=== PATIENT | female | born 1960 | race Caucasian/White ===

== ENCOUNTER 2019-07-27 07:17 | Outpatient (CLI) | payer OTHER, SELFPAY ==
[2019-07-27 07:46] LABS: Basophils Percent Auto 0.7 % (0.2-1.2); Eosinophils Absolute Auto 0.2 K/mm3 (0-0.3); Eosinophils Percent Auto 2.8 % (0-4.4); Hematocrit 36.6 % (37.0-47.0); Hemoglobin 12.1 g/dL (12.0-15.0); Immature Granulocyte Absolute 0.02 K/mm3 (0.00-0.031); Immature Granulocyte Percent A 0.4 % (0-0.5); Lymphocytes Absolute Auto 1.94 K/mm3 (0.9-3.2); Lymphocytes Percent Auto 35.8 % (18.3-44.2); Mean Corpuscular HGB Conc 33.1 g/dl (32-36); Mean Corpuscular Hemoglobin 31.1 pg (26-34); Mean Corpuscular Volume 94.1 fl (80-100); Monocytes Absolute Auto 0.8 K/mm3 (0.1-0.6); Monocytes Percent Auto 14.2 % (2.6-8.5); Neutrophils Absolute Auto 2.5 K/mm3 (1.3-6.7); Neutrophils Percent Auto 46.1 % (45.5-73.1); Platelet Count Result 350 k/mm3 (150-375); Red Blood Count 3.89 M/mm3 (4.2-5.4); Red Cell Distribution Width 13.7 % (11.5-14.5); White Blood Count 5.4 K/mm3 (4.5-10.0)
[2019-07-27 07:56] LABS: Alanine Aminotransferase 13 U/L (4-35); Albumin Level 4.4 g/dL (3.5-5.1); Alkaline Phosphatase 63 U/L (38-126); Aspartate Amino Transferase 21 U/L (14-36); Bilirubin,Total 0.4 mg/dL (0.2-1.3); Blood Urea Nitrogen 16 mg/dL (7-17); Calcium 9.6 mg/dL (8.4-10.2); Carbon Dioxide 29 mmol/L (22-30); Chloride 101 mmol/L (98-107); Cholesterol 240 mg/dL (0-200); Estimated Glomerular Filt Rate > 60; Glucose 108 mg/dL (65-105); HDL Direct 59 mg/dL; Potassium 4.5 mmol/L (3.4-5.0); Sodium 136 mmol/L (137-145); Triglycerides 90 mg/dL (<150)
[2019-07-27 08:07] LABS: LDL Cholesterol Direct 129 mg/dL
[2019-07-27 08:25] LABS: Free T4 Free Thyroxine 1.14 ng/mL (0.78-2.19)
== END 2019-07-27 07:18 | disposition home or self-care (01) ==
PROVIDERS: PCP Family Medicine; Visit Provider Family Medicine
DX: Z00.00 Encounter for general adult medical examination without abnormal findings (principal); E03.9 Hypothyroidism, unspecified; I10 Essential (primary) hypertension
CPT/HCPCS: 36415; 80053; 80061; 84439; 84443; 85025

== ENCOUNTER 2019-09-12 00:45 | Outpatient (CLI) | payer OTHER, SELFPAY ==
[2019-09-12 17:34] LABS: SARS-CoV-2 RNA PCR Negative
== END 2019-09-12 00:46 | disposition home or self-care (01) ==
LOC: ANHCOVIDDT 00:45
PROVIDERS: PCP Family Medicine; Visit Provider Internal Medicine Gastroenterology
DX: Z01.812 Encounter for preprocedural laboratory examination (principal); Z11.59 Encounter for screening for other viral diseases
CPT/HCPCS: 87635; C9803; U0003

== ENCOUNTER 2019-09-14 01:11 | Day surgery (SDC) | payer OTHER, SELFPAY ==
[2019-09-06 14:19] VITALS: BMI 28.5
[2019-09-14 08:55] VITALS: BP 114/70; PULSE 78; RESP 16; TEMP 36.9; O2SAT 100; BMI 29.0
--- NOTE | 2019-09-14 09:02 | P.HP_ITS ---
History of Present Illness History of Present Illness Consent: Risks, benefits, and alternatives have been discussed and questions answered. Patient agrees to proceed with procedure. Chief complaint: Neoplasm Screening Narrative: Nava Wheeler is a 58 year old W female referred for screening colonoscopy secondary history of colonic polyps. Patient had a colonoscopy 6 years ago which time a 1 cm adenomatous polyp was removed. She received a letter 5 years ago but did not return at that time. Patient is asymptomatic. No family history of colon cancer. [facility] Past Medical History Medical History (Updated 09/13/19 @ 10:28 by Santy Callahan DO) Hypertension Hypothyroidism (acquired) Leg benign neoplasm Surgical History Surgical History (Updated 07/18/19 @ 15:13 by Hali Mcallister MA) H/O adenoidectomy History of cholecystectomy Hx of tonsillectomy Social History Social History Smoking status: Never smoker Alcohol intake: current Gender identity (if verbalized by the patient): Female Meds Home Medications and Allergies Home Medications Medication Instructions Recorded Confirmed Type levothyroxine 75 mcg tablet 75 mcg PO DAILY #90 tablet 03/12/19 09/06/19 Rx telmisartan 40 1 tablet PO DAILY #90 tablet 03/12/19 09/14/19 Rx mg-hydrochlorothiazide 12.5 mg tablet omeprazole 20 mg PO DAILY 09/06/19 09/06/19 History Allergies Allergy/AdvReac Type Severity Reaction Status Date / Time codeine Allergy Unknown Nausea Verified 09/14/19 08:53 erythromycin base Allergy Unknown intolerance Verified 09/14/19 08:53 hydrocodone Allergy Unknown unknown Verified 09/14/19 08:53 morphine Allergy Unknown Nausea Verified 09/14/19 08:53 NONE VICODIN AND MSO4 MAKE Allergy Unknown unknown Uncoded 09/14/19 08:53 NAUSEATED Vital Signs Vital Signs - 24 hr 09/14/19 08:55 Temperature 36.9 C Pulse Rate 78 Respiratory Rate 16 Blood Pressure 114/70 Pulse Oximetry 100 Exam Const: Orientation/consciousness: patient oriented x3 Resp: Auscultation: clear to auscultation bilaterally Cardio: Rate: regular rate Rhythm: regular rhythm Heart sounds: no murmurs GI: GI Palp: Yes Soft to palpation, No Tenderness to palpation present (GI), Yes No hepatosplenomegaly present and No Palpable mass present Auscultation: normal bowel sounds Neuro: General: patient oriented x3 and no focal motor deficits Extrem: General: no pedal edema Assessment and Plan Additional Plan Screening colonoscopy secondary history of colonic polyps
[2019-09-14] MEDS: LACTATED RINGERS 1,000 ML 150 ML IV CONT (09:13)
--- NOTE | 2019-09-14 09:13 | WPDANESEPPF ---
Anes - Initial Pre Proc Eval Procedure: Operation Date: 09/14/19 10:00 Proposed Procedures p Screening Colonoscopy - Yony Palomo MD Date/Time: 09/14/19 09:13 Surgeon: Yony Palomo MD Pre Op Diagnosis: Neoplasm Screening Patient Data Age: 58 Gender: F Height: 1.6 m Weight: 74.4 kg Last Vital Signs Temp 36.9 C 09/14/19 08:55 Pulse 78 09/14/19 08:55 Resp 16 09/14/19 08:55 BP 114/70 09/14/19 08:55 Pulse Ox 100 09/14/19 08:55 Allergies Allergy/AdvReac Type Severity Reaction Status Date / Time codeine Allergy Unknown Nausea Verified 09/14/19 08:53 erythromycin base Allergy Unknown intolerance Verified 09/14/19 08:53 hydrocodone Allergy Unknown unknown Verified 09/14/19 08:53 morphine Allergy Unknown Nausea Verified 09/14/19 08:53 NONE VICODIN AND MSO4 MAKE Allergy Unknown unknown Uncoded 09/14/19 08:53 NAUSEATED Home Medications Medication Instructions Recorded Confirmed Type levothyroxine 75 mcg tablet 75 mcg PO DAILY #90 tablet 03/12/19 09/06/19 Rx telmisartan 40 1 tablet PO DAILY #90 tablet 03/12/19 09/14/19 Rx mg-hydrochlorothiazide 12.5 mg tablet omeprazole 20 mg PO DAILY 09/06/19 09/06/19 History Patient hx anesthesia problems: none Family hx anesthesia problems: none PMFSH Past Medical History Medical History (Updated 09/13/19 @ 10:28 by Santy Callahan DO) Hypertension Hypothyroidism (acquired) Leg benign neoplasm Surgical History Surgical History (Updated 07/18/19 @ 15:13 by Hali Mcallister MA) H/O adenoidectomy History of cholecystectomy Hx of tonsillectomy Social History Social History Smoking status: Never smoker Alcohol intake: current Gender identity (if verbalized by the patient): Female Anes - Eval Final PreProcedure Day of Procedure 09/14/19 09:13 Patient weight: overweight Heart: regular rate and rhythm Lungs: clear to auscultation and normal air movement Airway: Mallampati scale class II Neurological: alert and oriented Last oral intake: >/= 8 hours ASA classification: II Emergent: no Anesthetic plan: proceed Anesthesia type and monitoring: general GIVS and standard monitoring Informed Consent: The patient's anesthetic plan and its attendant risks and benefits were discussed with the patient/family/POA. Questions were solicited and answers provided to the satisfaction of the patient/family/POA.
[2019-09-14 10:39] VITALS: BP 114/73; PULSE 76; RESP 21; O2SAT 96
[2019-09-14 10:49] VITALS: BP 125/73; PULSE 70; RESP 13; O2SAT 100
[2019-09-14 10:51] VITALS: BP 128/80; PULSE 67; RESP 17; O2SAT 100
== END 2019-09-14 11:05 | disposition home or self-care (01) ==
PROVIDERS: PCP Family Medicine; Visit Provider Internal Medicine Gastroenterology
PROC: 0DJD8ZZ Inspection of Lower Intestinal Tract, Via Natural or Artificial Opening Endoscopic (ICD-10-PCS; CPT 45378; principal; 2019-09-14 10:00)
DX: Z12.11 Encounter for screening for malignant neoplasm of colon (principal); D12.5 Benign neoplasm of sigmoid colon; D12.8 Benign neoplasm of rectum; I10 Essential (primary) hypertension; E03.9 Hypothyroidism, unspecified
CPT/HCPCS: 45385; 88305; J2704; J7120

== ENCOUNTER 2019-09-17 14:53 | Outpatient (CLI) | payer OTHER, SELFPAY ==
--- NOTE | ~2019-09-17 | MM_ITS ---
EXAMINATION: MM screening lopez BI w roverto HISTORY: Screening mammogram TECHNIQUE: Craniocaudal and mediolateral oblique 3-D tomosynthesis images were obtained and synthetic 2-D images were generated. CAD analysis was submitted and interpreted. COMPARISON: Comparison to multiple prior studies sequentially, with oldest reviewed study dated 02/19. BREAST PARENCHYMAL COMPOSITION: The breasts are heterogenously dense, which may obscure small masses. FINDINGS: There is no evidence of suspicious mass, calcification, or architectural distortion to sugg est malignancy in either breast. There has been no suspicious interval change. IMPRESSION: 1. No mammographic evidence of malignancy. 2. Recommend routine screening mammography in one year. BI-RADS Category 1: Negative Reviewed, dictated and finalized at location A.
--- NOTE | ~2019-09-17 | DEXA_ITS ---
Bone Density Report Name: Nava Wheeler Age: 58 Sex: Female Ethnicity: White Date of : 1960 Indication: postmenopausal; Referring Provider: Josesito LAL Study: Bone densitometry was performed. Exam Date: September 17, 2019 Accession number: [id number] Bone Density: Region BMD T-score Z-score Classification AP Spine (L1-L4) 1.103 0.5 2.0 Normal Femoral Neck (Left) 0.907 0.5 1.8 Normal Total Hip (Left) 1.030 0.7 1.7 Normal Total Hip Bilateral Avg 1.020 0.6 1.6 Normal Femoral Neck (Right) 0.839 -0.1 1.2 Normal Total Hip (Right) 1.008 0.5 1.5 Normal World Health Organization criteria for BMD impression classify patients as: Normal (T-score at or above -1.0), Osteopenia (T-score between -1.0 and -2.5), or Osteoporosis (T-score at or below -2.5). 10-year Fracture Risk: FRAX not reported because: All T-scores for Spine Total, Hip Total, Femoral Neck at or above -1.0 Previous Exams: Region Exam Age BMD T-score BMD Change BMD Change Date g/cm2 vs Baseline vs Previous AP Spine(L1-L4) 09/17/2019 58 1.103 0.5 -0.274(-19.9%) -0.274(-19.9%) 11/05/2002 41 1.377 3.0 Total Hip(Left) 09/17/2019 58 1.030 0.7 -0.142(-12.1%) -0.142(-12.1%) 11/05/2002 41 1.172 1.9 Total Hip(Right) 09/17/2019 58 1.008 0.5 -0.158(-13.5%) -0.158(-13.5%) 11/05/2002 41 1.166 1.8 *Denotes significance at 95% confidence level, LSC for AP Spine = 0.022 g/cm2, LSC for Total Hip = 0.027 g/cm2 Clinical Information Provided by Patient: Has used the following medications: Calcium Patient maximum height was 64 Menopause Age: 48 Does not regularly consume dairy products Drinks caffeinated beverages Onset of menses at age 11 Number of children 2 Impression: The patient has normal bone mass. No significant bone loss was observed. Discussion: BONE DENSITY IS ABOVE THE MINIMUM DESIRABLE LEVEL AT ALL SKELETAL SITES TESTED. This patient?s bone mineral density is above the minimum desirable level (T-score -1.0 or better) at all sites measured. The patient should follow a healthful lifestyle (good nutrition with adequate calcium and vitamin D, and appropriate weight-bearing exercise). Follow-Up: Consider repeating this study in 5 years or sooner if there is some new clinical indication. Reported by: CARLITA on 09/17/2019 3:26:00 PM. Reviewed, dictated and finalized at location ANancy CHRISTINA
== END 2019-09-17 14:54 | disposition home or self-care (01) ==
LOC: ANHIMG 14:55
PROVIDERS: PCP Family Medicine; Visit Provider Family Medicine
DX: Z12.31 Encounter for screening mammogram for malignant neoplasm of breast (principal); M81.0 Age-related osteoporosis without current pathological fracture; Z78.0 Asymptomatic menopausal state
CPT/HCPCS: 77063; 77067; 77080

== ENCOUNTER 2020-07-23 07:11 | Outpatient (CLI) | payer OTHER, SELFPAY ==
[2020-07-23 07:27] LABS: Basophils Absolute Auto 0.1 K/mm3 (0.0-0.1); Basophils Percent Auto 0.8 % (0.2-1.2); Eosinophils Absolute Auto 0.2 K/mm3 (0-0.3); Eosinophils Percent Auto 2.6 % (0-4.4); Hematocrit 37.8 % (37.0-47.0); Hemoglobin 12.4 g/dL (12.0-15.0); Immature Granulocyte Absolute 0.01 K/mm3 (0.00-0.031); Immature Granulocyte Percent A 0.2 % (0-0.5); Lymphocytes Absolute Auto 2.08 K/mm3 (0.9-3.2); Lymphocytes Percent Auto 33.2 % (18.3-44.2); Mean Corpuscular HGB Conc 32.8 g/dl (32-36); Mean Corpuscular Hemoglobin 30.5 pg (26-34); Mean Corpuscular Volume 93.1 fl (80-100); Mean Platelet Volume 8.6 fl (7.4-10.4); Monocytes Absolute Auto 0.9 K/mm3 (0.1-0.6); Monocytes Percent Auto 14.7 % (2.6-8.5); Neutrophils Percent Auto 48.5 % (45.5-73.1); Platelet Count Result 338 k/mm3 (150-375); Red Blood Count 4.06 M/mm3 (4.2-5.4); White Blood Count 6.3 K/mm3 (4.5-10.0)
[2020-07-23 07:43] LABS: Alanine Aminotransferase 13 U/L (4-35); Albumin Level 4.5 g/dL (3.5-5.1); Alkaline Phosphatase 64 U/L (38-126); Anion Gap 5 mmol/L (8-16); Aspartate Amino Transferase 23 U/L (14-36); Bilirubin,Total 0.5 mg/dL (0.2-1.3); Blood Urea Nitrogen 12 mg/dL (7-17); Calcium 10.2 mg/dL (8.4-10.2); Carbon Dioxide 33 mmol/L (22-30); Chloride 99 mmol/L (98-107); Cholesterol 247 mg/dL (0-200); Estimated Glomerular Filt Rate > 60; Glucose 96 mg/dL (65-105); HDL Direct 64 mg/dL; Hemoglobin A1C 5.8 % (<5.7); Potassium 4.3 mmol/L (3.4-5.0); Sodium 137 mmol/L (137-145); Triglycerides 136 mg/dL (<150)
[2020-07-23 07:54] LABS: LDL Cholesterol Direct 128 mg/dL
[2020-07-23 08:37] LABS: Free T4 Free Thyroxine 0.99 ng/mL (0.78-2.19)
[2020-07-23 09:09] LABS: Hepatitis C Virus Antibody Negative (Negative)
== END 2020-07-23 07:12 | disposition home or self-care (01) ==
PROVIDERS: PCP Family Medicine; Visit Provider Family Medicine
DX: R60.9 Edema, unspecified (principal); E03.9 Hypothyroidism, unspecified; I10 Essential (primary) hypertension; Z00.00 Encounter for general adult medical examination without abnormal findings; Z11.59 Encounter for screening for other viral diseases
CPT/HCPCS: 36415; 80053; 80061; 83036; 84439; 84443; 85025; 86803

== ENCOUNTER 2020-09-19 07:12 | Outpatient (CLI) | payer OTHER, SELFPAY ==
--- NOTE | ~2020-09-19 | MM_ITS ---
EXAMINATION: MM screening lopez BI w roverto HISTORY: Screening TECHNIQUE: Craniocaudal and mediolateral oblique 3-D tomosynthesis images were obtained and synthetic 2-D images were generated. CAD analysis was submitted and interpreted. COMPARISON: Comparison to multiple prior studies sequentially, with oldest reviewed study dated 02/19. BREAST PARENCHYMAL COMPOSITION: The breasts are heterogeneously dense, which may obscure small masses . FINDINGS: There is no evidence of suspicious mass, calcification, or architectural distortion to sugg est malignancy in either breast. There has been no suspicious interval change. IMPRESSION: 1. No mammographic evidence of malignancy. 2. Recommend routine screening mammography in one year. BI-RADS Category 1: Negative Reviewed, dictated and finalized at location A.
== END 2020-09-19 07:13 | disposition home or self-care (01) ==
LOC: ANHIMG 07:14
PROVIDERS: PCP Family Medicine; Visit Provider Family Medicine
DX: Z12.31 Encounter for screening mammogram for malignant neoplasm of breast (principal)
CPT/HCPCS: 77063; 77067

== ENCOUNTER → 2021-01-07 04:23 | Outpatient (CLI) | payer OTHER, SELFPAY ==
[2021-01-08 17:41] LABS: SARS-CoV-2 RNA PCR Negative
== END ==
PROVIDERS: PCP Family Medicine; Visit Provider Physician Assistant
DX: R68.89 Other general symptoms and signs (principal); Z20.822 Contact with and (suspected) exposure to COVID-19
CPT/HCPCS: C9803; U0003; U0005

== ENCOUNTER 2021-06-10 07:17 | Outpatient (CLI) | payer OTHER, SELFPAY ==
[2021-06-10 07:35] LABS: Basophils Percent Auto 0.7 % (0.2-1.2); Eosinophils Absolute Auto 0.1 K/mm3 (0-0.3); Eosinophils Percent Auto 2.4 % (0-4.4); Hematocrit 32.6 % (37.0-47.0); Hemoglobin 10.7 g/dL (12.0-15.0); Immature Granulocyte Absolute 0.02 K/mm3 (0.00-0.031); Immature Granulocyte Percent A 0.4 % (0-0.5); Lymphocytes Absolute Auto 2.03 K/mm3 (0.9-3.2); Lymphocytes Percent Auto 36.7 % (18.3-44.2); Mean Corpuscular HGB Conc 32.8 g/dl (32-36); Mean Corpuscular Volume 94.5 fl (80-100); Mean Platelet Volume 8.5 fl (7.4-10.4); Monocytes Absolute Auto 0.9 K/mm3 (0.1-0.6); Monocytes Percent Auto 15.6 % (2.6-8.5); Neutrophils Absolute Auto 2.5 K/mm3 (1.3-6.7); Neutrophils Percent Auto 44.2 % (45.5-73.1); Platelet Count Result 370 k/mm3 (150-375); Red Blood Count 3.45 M/mm3 (4.2-5.4); Red Cell Distribution Width 13.3 % (11.5-14.5); White Blood Count 5.5 K/mm3 (4.5-10.0)
[2021-06-10 07:55] LABS: Alanine Aminotransferase 17 U/L (4-35); Albumin Level 4.4 g/dL (3.5-5.1); Alkaline Phosphatase 67 U/L (38-126); Anion Gap 6 mmol/L (8-16); Aspartate Amino Transferase 28 U/L (14-36); Bilirubin,Total 0.4 mg/dL (0.2-1.3); Blood Urea Nitrogen 13 mg/dL (7-17); Calcium 9.2 mg/dL (8.4-10.2); Carbon Dioxide 27 mmol/L (22-30); Chloride 102 mmol/L (98-107); Cholesterol 255 mg/dL (0-200); Estimated Glomerular Filt Rate > 60; Glucose 101 mg/dL (65-110); HDL Direct 64 mg/dL; Potassium 4.1 mmol/L (3.4-5.0); Sodium 135 mmol/L (137-145); Triglycerides 90 mg/dL (<150)
[2021-06-10 07:57] LABS: LDL Cholesterol Direct 121 mg/dL
[2021-06-10 08:04] LABS: Free T4 Free Thyroxine 1.18 ng/mL (0.78-2.19); Vitamin D 25 Hydroxy 54.6 ng/mL
== END 2021-06-10 07:18 | disposition home or self-care (01) ==
LOC: ANHLAB 07:19
PROVIDERS: PCP Family Medicine; Visit Provider Family Medicine
DX: R53.83 Other fatigue (principal); E03.9 Hypothyroidism, unspecified; Z79.899 Other long term (current) drug therapy; I10 Essential (primary) hypertension
CPT/HCPCS: 36415; 80053; 80061; 82306; 84439; 84443; 85025

== ENCOUNTER 2021-09-24 15:22 | Outpatient (CLI) | payer OTHER, SELFPAY ==
--- NOTE | ~2021-09-24 | MM_ITS ---
EXAMINATION: MM screening lopez BI w roverto HISTORY: Screening TECHNIQUE: Craniocaudal and mediolateral oblique 3-D tomosynthesis images were obtained and synthetic 2-D images were generated. CAD analysis was submitted and interpreted. COMPARISON: Comparison to multiple prior studies sequentially, with oldest reviewed study dated 02/19. BREAST PARENCHYMAL COMPOSITION: The breasts are heterogeneously dense, which may obscure small masses . FINDINGS: There is no evidence of suspicious mass, calcification, or architectural distortion to sugg est malignancy in either breast. There has been no suspicious interval change. IMPRESSION: 1. No mammographic evidence of malignancy. 2. Recommend routine screening mammography in one year. BI-RADS Category 1: Negative Reviewed, dictated and finalized at location A.
== END 2021-09-24 15:23 | disposition home or self-care (01) ==
PROVIDERS: PCP Family Medicine; Visit Provider Family Medicine
DX: Z12.31 Encounter for screening mammogram for malignant neoplasm of breast (principal)
CPT/HCPCS: 77063; 77067

== ENCOUNTER 2022-08-04 14:36 | Outpatient (CLI) | payer OTHER, SELFPAY ==
--- NOTE | ~2022-08-04 | MR_ITS ---
EXAMINATION: MR femur RT wo/w con DATE: 08/04/2022 15:45 INDICATION: Mass at the anterior right thigh TECHNIQUE: Magnetic resonance imaging (MRI) of the right thigh was performed without intravenous cont rast. A marker was placed over the mass. Sequences included axial, sagittal and coronal T1-weighted FSE and fluid sensitive FSE STIR, axial T1-weighted FS FSE and post contrast axial, sagittal and tanesha nal T1-weighted FS FSE were also obtained. The contralateral left thigh is included on the coronal im ages. COMPARISON: None. FINDINGS: The marker is positioned at the anterior aspect of the distal thigh at the level of the distal margin of the myotendinous junction of the rectus femoris. There is normal appearance to the underlying sub cutaneous fat with no evident lipoma. No other abnormal masses or fluid collections identified. There is normal and symmetric muscle bulk and signal in the bilateral thighs visualized proximal calves. T here is chondral fissuring with underlying subarticular edema-like signal change at the cephalad aspe ct of the patellar apical ridge and at the medial trochlea. Marrow signal is otherwise normal. No kne e joint effusion. No abnormally enhancing lesions identified. IMPRESSION: 1. Normal appearance to the subcutaneous fat and underlying musculature at the region of the palpable abnormality at the anterior distal right thigh. No abnormal masses, fluid collections or abnormally enhancing lesions identified. 2. Osteoarthritis at the patellofemoral compartment right knee with regions of high-grade chondral ma lacia the patellar apical ridge and and medial trochlea. Reviewed, dictated and finalized at location A. IMPRESSION: 1. Normal appearance to the subcutaneous fat and underlying musculature at the region of the palpable abnormality at the anterior distal right thigh. No abnor mal masses, fluid collections or abnormally enhancing lesions identified. 2. Osteoarthritis at the patellofemoral compartment right knee with regions of high-grade chondral malacia the patellar apical ridge and and medial trochlea.
== END 2022-08-04 14:37 | disposition home or self-care (01) ==
LOC: ANHIMG 14:42
PROVIDERS: PCP Family Medicine; Visit Provider Family Medicine
DX: D48.1 Neoplasm of uncertain behavior of connective and other soft tissue (principal); M17.11 Unilateral primary osteoarthritis, right knee
CPT/HCPCS: 73720; A9577

== ENCOUNTER 2022-08-17 08:17 | Outpatient (CLI) | payer OTHER, SELFPAY ==
--- NOTE | 2022-08-20 03:47 | WPDHOMESLEEP ---
Sleep Study - Home Unattended Date of Study: 08/17/22 Ordering Provider: Regan Shetty MD Interpreting Provider: Claudine Gonzalez MD Home Sleep Study Type: Watch PAT Height: 1.63 m Weight: 78.381 kg Body Mass Index: 29.6 Neck Circumference (inches): 14 [place]: 2 Reason for Sleep Study Loud snoring Sleep History Nava Wheeler is a 61-year-old woman who says that her reports that she snores loudly. This is been going on for 2 years. She does not awaken from sleep feeling short of breath. She rarely awakens at night with heartburn, belching or coughing. She occasionally snores but frequently it is loud enough that he complains. She frequently has difficulty sleeping with a cold. She does not wake up gasping for breath at night. She she rarely sweats excessively at night and rarely notices her heart pounding or beating irregularly at night. She does not fall asleep during the day, does not fall asleep involuntarily. She does not have loss of muscle tone with strong emotion. She does not have daytime difficulties due to excessive sleepiness. She does not feel paralyzed on waking or falling asleep. She rarely has vivid dreamlike scenes upon awakening or falling asleep. She does not feel afraid to go to sleep. She rarely has nightmares. She frequently remembers her dreams. She rarely has racing thoughts. She rarely feels sad or depressed. She rarely has anxiety. She occasionally has muscular tension. She does not notice parts her body jerking. She does not kick at night. She does not have crawling or aching feelings in her legs. She denies any kind of leg pain during the night. She does not have morning jaw pain. She does not grind her teeth during sleep. She rarely is bothered by pain during the day. She is not awakened by pain at night. She occasionally wakes up feeling stiff in the morning. She rarely wakes up with sore or achy muscles, and rarely wakes up with pain in the neck and spine. Her significant medical comorbidities include hypertension, gastroesophageal reflux disease/ heartburn, seasonal allergies for which she uses loratadine and Flonase. Normal bedtime is 11:00 p.m. falling asleep within 1/2 hour, sometimes taking longer. She generally wakes up between 1 and 3 times during the night. While awake, she goes to the bathroom, adjust her CPAP mask, and she may move to another bedroom. She wakes in the morning at 6:00 a.m.. On weekends, bedtime is also 11:00 p.m., she wakes L at 8:00 a.m.. She estimates getting an average of 6 hours of sleep at night. She does not take naps in the afternoon or evening. Most of the time she feels adequate upon awakening. She feels better in the morning compared to other times of day. Habits: Tobacco: Never smoked tobacco. Caffeine: 1-2 servings per day. Alcohol: 1 pair of rigid day. Recreational substance: None. [facility] Past Medical History Medical History Hypertension Hypothyroidism (acquired) Leg benign neoplasm Surgical History Surgical History H/O adenoidectomy History of cholecystectomy Hx of tonsillectomy Family History Family History Mother Family history of glaucoma Breast cancer Father Diabetes mellitus Malignant neoplasm of prostate, Onset Age: 76 Other Family history of cardiovascular disease Family history of elevated blood lipids Family history of malignant neoplasm of breast Social History Social History (Updated 07/22/22 @ 14:58 by Rosi Nevarez MA) Smoking status: Never smoker Alcohol intake: current Lack of Transportation: No Lack of Food: Never True Current Housing: I Have Housing Concerned About Future Housing: No Difficulty Paying Gas/Electric Bills: No Difficulty Paying for Meds: No Currently Unemployed: No Education:
[2022-08-20 04:00] VITALS: BMI 29.6
== END 2022-08-18 10:50 | disposition home or self-care (01) ==
LOC: ANHCSM 08:18
PROVIDERS: PCP Family Medicine; Visit Provider Family Medicine
DX: R06.83 Snoring (principal); R53.83 Other fatigue; G47.30 Sleep apnea, unspecified; G47.33 Obstructive sleep apnea (adult) (pediatric)
CPT/HCPCS: 95800

== ENCOUNTER 2022-09-29 16:06 | Emergency (ER) | payer OTHER, SELFPAY ==
--- NOTE | ~2022-09-29 | XR_ITS ---
EXAMINATION: XR ankle LT min 3V DATE: 09/29/2022 16:41 INDICATION: Left foot and ankle pain post injury TECHNIQUE: 1. Anteroposterior, mortise, additional oblique and lateral view of the left ankle were obtained. 2. Dorsoplantar, two oblique and lateral views of the left foot were obtained. COMPARISON: None. FINDINGS: Alignment of the left foot and ankle is normal. No fracture. There is flattening of the articular cor kasandra of the head of the second metatarsals without underlying sclerosis or lucency consistent with chr onic osteonecrosis (Freiberg's infraction). Mild osteoarthritis at the first metatarsophalangeal and a few tarsometatarsal and interphalangeal joints. Moderate-sized plantar calcaneal spur. No ankle dwayne nt effusion. Soft tissue swelling about the medial malleolus IMPRESSION: 1. No acute osseous abnormality. Reviewed, dictated and finalized at location A.
--- NOTE | ~2022-09-29 | XR_ITS ---
EXAMINATION: XR ankle LT min 3V DATE: 09/29/2022 16:41 INDICATION: Left foot and ankle pain post injury TECHNIQUE: 1. Anteroposterior, mortise, additional oblique and lateral view of the left ankle were obtained. 2. Dorsoplantar, two oblique and lateral views of the left foot were obtained. COMPARISON: None. FINDINGS: Alignment of the left foot and ankle is normal. No fracture. There is flattening of the articular cor kasandra of the head of the second metatarsals without underlying sclerosis or lucency consistent with chr onic osteonecrosis (Freiberg's infraction). Mild osteoarthritis at the first metatarsophalangeal and a few tarsometatarsal and interphalangeal joints. Moderate-sized plantar calcaneal spur. No ankle dwayne nt effusion. Soft tissue swelling about the medial malleolus IMPRESSION: 1. No acute osseous abnormality. Reviewed, dictated and finalized at location A.
--- NOTE | 2022-09-29 16:10 | ED.LOWEXIN ---
HPI - Extremity Injury (Lower) General Chief Complaint: Extremity Injury, Lower Stated Complaint: Injured left ankle Source: patient and RN notes reviewed Limitations: no limitations History of Present Illness HPI Narrative: Patient is a 61 year female who presents to the [facility] with complaints of left foot and ankle pain. Patient states that she started having pain 2 weeks ago when she missed a step walking out [place]. Patient states that she landed hard on the ankle that time. Patient states that she injured the ankle again this weekend while she was power washing. States that she accidentally rolled the ankle. Patient states that today, she was walking out of house and went down 1 step and rolled her ankle again and heard a pop. She reports constant aching and throbbing there is mild swelling noted to the medial aspect the ankle and foot. No obvious deformity or bruising. Sensation is intact and she denies numbness. Pulses present. Cap refill is normal. Related Data Allergies Allergy/AdvReac Type Severity Reaction Status Date / Time erythromycin base Allergy Unknown Verified 09/29/22 16:21 acetaminophen [From Vicodin] AdvReac Nausea and Verified 09/29/22 16:21 Vomiting hydrocodone [From Vicodin] AdvReac Nausea and Verified 09/29/22 16:21 Vomiting morphine AdvReac Nausea and Verified 09/29/22 16:21 Vomiting Review of Systems Review of Systems: CONSTITUTIONAL: Denies fever, chills, or sweats. EYES: Denies visual changes, redness, or discharge. ENT: Denies otalgia and sore throat CARDIOVASCULAR: Denies chest pain, palpitations, or edema. RESPIRATORY: Denies cough or dyspnea. GASTROINTESTINAL: Denies abdominal pain, nausea, vomiting, or diarrhea. GENITOURINARY: Denies dysuria or hematuria. SKIN: Denies rash or itching. MUSCULOSKELETAL: Denies back pain or myalgia. Reports left ankle and foot pain. NEUROLOGIC: Denies headache, numbness, or weakness. Pertinent positives per HPI. COUNTS INCLUDE 234 BEDS AT THE [facility] Past Medical History Medical History Hypertension Hypothyroidism (acquired) Leg benign neoplasm Surgical History Surgical History H/O adenoidectomy History of cholecystectomy Hx of tonsillectomy Family History Family History Mother Family history of glaucoma Breast cancer Father Diabetes mellitus Malignant neoplasm of prostate, Onset Age: 76 Other Family history of cardiovascular disease Family history of elevated blood lipids Family history of malignant neoplasm of breast Social History Social History Smoking status: Never smoker Alcohol intake: current Lack of Transportation: No Lack of Food: Never True Current Housing: I Have Housing Concerned About Future Housing: No Difficulty Paying Gas/Electric Bills: No Difficulty Paying for Meds: No Currently Unemployed: No Education: Trade/Vocational Certificate Difficulty w/ Childcare or Family Care: No Gender identity (if verbalized by the patient): Female Comments At the time of my signature, I reviewed and agree with the nursing past medical, surgical, social, and family history. There is no relevant family history pertinent to the patient complaint. Exam Narrative: GENERAL: This is a well-nourished, well-developed patient, in no apparent distress. HEAD: normocephalic, atraumatic. EYES: PERRL. Sclera clear/white. Vision is grossly intact. EARS: External ears normal, auditory canals clear and without drainage, TMs normal without perforation. Hearing grossly intact. NOSE: External nose normal with no obvious nasal discharge, nares without redness, no rhinorrhea. THROAT: Mucous membranes moist, posterior pharynx clear. NECK: Neck supple, non-tender without lymphadenopathy, masses
[2022-09-29 16:13] VITALS: BP 144/81; PULSE 81; RESP 16; TEMP 36.5; O2SAT 100
--- NOTE | 2022-09-29 16:55 | PC.NURSE ---
+PMS POST KALEB APPLICATION
== END 2022-09-29 16:55 | disposition home or self-care (01) ==
PROVIDERS: Emergency Provider Nurse Practitioner; PCP Family Medicine
DX: S93.402A Sprain of unspecified ligament of left ankle, initial encounter (principal); X50.9XXA Other and unspecified overexertion or strenuous movements or postures, initial encounter; I10 Essential (primary) hypertension; E03.9 Hypothyroidism, unspecified
CPT/HCPCS: 73610; 73630; 99213; G0463

== ENCOUNTER 2022-11-08 07:26 | Outpatient (CLI) | payer OTHER, SELFPAY ==
[2022-11-08 07:40] LABS: Basophils Percent Auto 0.5 % (0.2-1.2); Eosinophils Absolute Auto 0.2 K/mm3 (0-0.3); Eosinophils Percent Auto 2.7 % (0-4.4); Hematocrit 33.4 % (37.0-47.0); Hemoglobin 10.5 g/dL (12.0-15.0); Immature Granulocyte Absolute 0.02 K/mm3 (0.00-0.031); Immature Granulocyte Percent A 0.2 % (0-0.5); Lymphocytes Absolute Auto 1.87 K/mm3 (0.9-3.2); Lymphocytes Percent Auto 21.1 % (18.3-44.2); Mean Corpuscular HGB Conc 31.4 g/dl (32-36); Mean Corpuscular Hemoglobin 29.1 pg (26-34); Mean Corpuscular Volume 92.5 fl (80-100); Mean Platelet Volume 8.6 fl (7.4-10.4); Monocytes Absolute Auto 1.2 K/mm3 (0.1-0.6); Monocytes Percent Auto 13.4 % (2.6-8.5); Neutrophils Absolute Auto 5.5 K/mm3 (1.3-6.7); Neutrophils Percent Auto 62.1 % (45.5-73.1); Platelet Count Result 371 k/mm3 (150-375); Red Blood Count 3.61 M/mm3 (4.2-5.4); Red Cell Distribution Width 15.5 % (11.5-14.5); White Blood Count 8.9 K/mm3 (4.5-10.0)
[2022-11-08 07:50] LABS: Alanine Aminotransferase 21 U/L (6-35); Albumin Level 4.5 g/dL (3.5-5.1); Alkaline Phosphatase 67 U/L (38-126); Anion Gap 8 mmol/L (8-16); Aspartate Amino Transferase 28 U/L (14-36); Bilirubin,Total 0.5 mg/dL (0.2-1.3); Blood Urea Nitrogen 20 mg/dL (7-17); Calcium 9.2 mg/dL (8.4-10.2); Carbon Dioxide 28 mmol/L (22-30); Chloride 100 mmol/L (98-107); Cholesterol 217 mg/dL (0-200); Estimated Glomerular Filt Rate > 60; Glucose 104 mg/dL (65-110); HDL Direct 56 mg/dL; Potassium 4.4 mmol/L (3.4-5.0); Sodium 136 mmol/L (137-145); Triglycerides 95 mg/dL (<150)
[2022-11-08 08:01] LABS: LDL Cholesterol Direct 111 mg/dL
[2022-11-08 08:50] LABS: Free T4 Free Thyroxine 1.25 ng/mL (0.78-2.19)
== END 2022-11-08 07:27 | disposition home or self-care (01) ==
PROVIDERS: PCP Family Medicine; Visit Provider Physician Assistant
DX: E03.9 Hypothyroidism, unspecified (principal); I10 Essential (primary) hypertension; Z79.899 Other long term (current) drug therapy
CPT/HCPCS: 36415; 80053; 80061; 84439; 84443; 85025

== ENCOUNTER 2022-11-10 15:08 | Outpatient (CLI) | payer OTHER, SELFPAY ==
--- NOTE | ~2022-11-10 | MM_ITS ---
EXAMINATION: MM screening lopez BI w roverto HISTORY: Screening mammogram TECHNIQUE: Craniocaudal and mediolateral oblique 3-D tomosynthesis images were obtained and synthetic 2-D images were generated. Bilateral rotated lateral CC views. CAD analysis was submitted and interp reted. COMPARISON: 09/24/2021, 09/19/2020, 09/17/2019 bilateral screening mammogram examinations BREAST PARENCHYMAL COMPOSITION: The breasts are heterogeneously dense, which may obscure small masses . FINDINGS: Stable circumscribed low-density bilateral axillary tail and axillary lymph nodes. There is no evidence of suspicious mass, calcification, or architectural distortion to suggest malignancy in either breast. There has been no suspicious interval change. IMPRESSION: 1. No mammographic evidence of malignancy. 2. Recommend routine screening mammography in one year. BI-RADS Category 1: Negative Reviewed, dictated and finalized at location A.
== END 2022-11-10 15:09 | disposition home or self-care (01) ==
LOC: ANHIMG 15:11
PROVIDERS: PCP Family Medicine; Visit Provider Family Medicine
DX: Z12.31 Encounter for screening mammogram for malignant neoplasm of breast (principal)
CPT/HCPCS: 77063; 77067

== ENCOUNTER 2023-06-16 07:30 | Outpatient (CLI) | payer OTHER, SELFPAY ==
[2023-06-16 08:58] LABS: Basophils Absolute Auto 0.1 K/mm3 (0.0-0.1); Basophils Percent Auto 0.9 % (0.2-1.2); Eosinophils Absolute Auto 0.2 K/mm3 (0-0.3); Hemoglobin 12.2 g/dL (12.0-15.0); Immature Granulocyte Absolute 0.01 K/mm3 (0.00-0.031); Immature Granulocyte Percent A 0.2 % (0-0.5); Lymphocytes Absolute Auto 1.73 K/mm3 (0.9-3.2); Lymphocytes Percent Auto 32.5 % (18.3-44.2); Mean Corpuscular HGB Conc 32.1 g/dl (32-36); Mean Corpuscular Hemoglobin 30.9 pg (26-34); Mean Corpuscular Volume 96.2 fl (80-100); Mean Platelet Volume 9.3 fl (7.4-10.4); Monocytes Absolute Auto 0.9 K/mm3 (0.1-0.6); Monocytes Percent Auto 16.2 % (2.6-8.5); Neutrophils Absolute Auto 2.5 K/mm3 (1.3-6.7); Neutrophils Percent Auto 47.2 % (45.5-73.1); Platelet Count Result 347 k/mm3 (150-375); Red Blood Count 3.95 M/mm3 (4.2-5.4); Red Cell Distribution Width 13.6 % (11.5-14.5); White Blood Count 5.3 K/mm3 (4.5-10.0)
[2023-06-16 09:32] LABS: LDL Cholesterol Direct 133 mg/dL
[2023-06-16 09:47] LABS: Alanine Aminotransferase 19 U/L (6-35); Albumin Level 4.4 g/dL (3.5-5.1); Alkaline Phosphatase 65 U/L (38-126); Anion Gap 9 mmol/L (4-12); Aspartate Amino Transferase 25 U/L (14-36); Bilirubin,Total 0.5 mg/dL (0.2-1.3); Blood Urea Nitrogen 15 mg/dL (7-17); Calcium 9.6 mg/dL (8.4-10.2); Carbon Dioxide 24 mmol/L (22-30); Chloride 102 mmol/L (98-107); Cholesterol 226 mg/dL (0-200); Estimated Glomerular Filt Rate > 60; Glucose 104 mg/dL (65-110); HDL Direct 54 mg/dL; Potassium 4.2 mmol/L (3.4-5.0); Sodium 135 mmol/L (137-145); Triglycerides 87 mg/dL (<150)
== END 2023-06-16 07:31 | disposition home or self-care (01) ==
PROVIDERS: PCP Family Medicine; Visit Provider Physician Assistant
DX: E03.9 Hypothyroidism, unspecified (principal); I10 Essential (primary) hypertension; Z79.899 Other long term (current) drug therapy
CPT/HCPCS: 36415; 80053; 80061; 84443; 85025

== ENCOUNTER 2023-10-19 07:20 | Outpatient (CLI) | payer OTHER, SELFPAY ==
[2023-10-19 07:55] LABS: Basophils Percent Auto 0.7 % (0.2-1.2); Eosinophils Absolute Auto 0.1 K/mm3 (0-0.3); Eosinophils Percent Auto 2.4 % (0-4.4); Hematocrit 38.2 % (37.0-47.0); Hemoglobin 12.7 g/dL (12.0-15.0); Immature Granulocyte Absolute 0.01 K/mm3 (0.00-0.031); Immature Granulocyte Percent A 0.2 % (0-0.5); Lymphocytes Absolute Auto 1.81 K/mm3 (0.9-3.2); Lymphocytes Percent Auto 30.6 % (18.3-44.2); Mean Corpuscular HGB Conc 33.2 g/dl (32-36); Mean Corpuscular Hemoglobin 31.7 pg (26-34); Mean Corpuscular Volume 95.3 fl (80-100); Mean Platelet Volume 9.1 fl (7.4-10.4); Neutrophils Percent Auto 50.1 % (45.5-73.1); Platelet Count Result 343 k/mm3 (150-375); Red Blood Count 4.01 M/mm3 (4.2-5.4); White Blood Count 5.9 K/mm3 (4.5-10.0)
[2023-10-19 08:07] LABS: Alanine Aminotransferase 14 U/L (6-35); Albumin Level 4.6 g/dL (3.5-5.1); Alkaline Phosphatase 64 U/L (38-126); Anion Gap 10 mmol/L (4-12); Aspartate Amino Transferase 22 U/L (14-36); Bilirubin,Total 0.4 mg/dL (0.2-1.3); Blood Urea Nitrogen 18 mg/dL (7-17); Calcium 9.5 mg/dL (8.4-10.2); Carbon Dioxide 30 mmol/L (22-30); Chloride 97 mmol/L (98-107); Estimated Glomerular Filt Rate > 60; Glucose 107 mg/dL (65-110); Potassium 4.6 mmol/L (3.4-5.0); Sodium 137 mmol/L (137-145)
== END 2023-10-19 07:21 | disposition home or self-care (01) ==
LOC: ANHLAB 07:22
PROVIDERS: PCP Family Medicine; Visit Provider Family Medicine
DX: D64.9 Anemia, unspecified (principal); E03.9 Hypothyroidism, unspecified; I10 Essential (primary) hypertension
CPT/HCPCS: 36415; 80053; 84443; 85025

== ENCOUNTER 2024-01-31 10:10 | Outpatient (CLI) | payer MEDICARE, SELFPAY ==
[2024-01-31 11:20] LABS: Thyroid Stimulating Hormone 0.425 uIU/mL (0.465-4.680)
== END 2024-01-31 10:11 | disposition home or self-care (01) ==
PROVIDERS: PCP Family Medicine; Visit Provider Family Medicine
DX: E03.9 Hypothyroidism, unspecified (principal)
CPT/HCPCS: 36415; 84443

== ENCOUNTER 2024-07-26 07:33 | Outpatient (CLI) | payer MEDICARE, SELFPAY ==
--- NOTE | ~2024-07-26 | MM_ITS ---
EXAMINATION: MM screening lopez BI w roverto HISTORY: Screening TECHNIQUE: Craniocaudal and mediolateral oblique 3-D tomosynthesis images were obtained and synthetic 2-D images were generated. CAD analysis was submitted and interpreted. COMPARISON: Comparison to multiple prior studies sequentially, with oldest reviewed study dated 11/2018. BREAST PARENCHYMAL COMPOSITION: Dense: The breasts are heterogeneously dense, which may obscure small masses FINDINGS: There is no evidence of suspicious mass, calcification, or architectural distortion to sugg est malignancy in either breast. There has been no suspicious interval change. IMPRESSION: 1. No mammographic evidence of malignancy. 2. Recommend routine screening mammography in one year. BI-RADS Category 1: Negative Reviewed, dictated and finalized at location A.
--- OUTSIDE RECORDS SUMMARY | 2024-07-26 07:36 | XMS_ITS | Clinical Summary ---
Author Organization [facility] Address [facility] [place] [address] Care Team Providers Care Director Of Photography Name Role Phone Kenji Bateman MD Primary Care Provider [phone] Allergies Active Allergy Reactions Criticality Noted Date Comments Erythromycin Nausea only Low 07/25/2019 Morphine Nausea only Low 07/25/2019 Hydrocodone-Acetaminophen Nausea only Low 0 Medications levothyroxine (SYNTHROID) 75 mcg tablet Take 1 tablet (75 mcg total) by mouth daily 06/05/2019 Active omeprazole (PriLOSEC) 20 mg capsule Take 1 capsule (20 mg total) by mouth daily Active fluticasone propionate (FLONASE ALLERGY RELIEF NASL) 10/29/2021 Active valsartan-hydro CHLOROthiazide (DIOVAN-HCT) 160-12.5 mg per tablet Take 1 tablet by mouth daily 11/02/2022 Active Active Problems Problem Noted Date Diagnosed Date Vulvar lesion 11/10/2021 Well woman exam with routine gynecological exam 11/08/2021 Vulvar lesion 11/05/2020 Immunizations Immunization Administration Dates Next Due Tdap 03/10/2018 Surgical History Surgery Date Site/Laterality Comments TONSILLECTOMY 03/21/1965 - 03/20/1966 CHOLECYSTECTOMY COLONOSCOPY TUMOR EXCISION 03/21/1996 - 03/20/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 Medical History Medical History Date Comments Hypertension Acid reflux Thyroid disease Family History Medical History Relation Name Comments Prostate cancer Father Breast cancer Mother Breast cancer Mother's Sister Relation Name Status Comments Father Mother Mother's Sister Social History Tobacco Use Types Packs/Day Years Used Date Smoking Tobacco: Never Smokeless Tobacco: Never Alcohol Use Standard Drinks/Week Comments Yes 7 (1 standard drink = 0.6 oz pur e alcohol) drinks daily beverage Personal Safety Answer Date Recorded Getting School Help Needed Not on file 06/04 Comments No Sex and Gender Information Value Date Recorded Sex Assigned at Not on file Legal Sex Female 8:44 AM CDT Gender Identity Female 11/04/2020 10:09 PM CDT Sexual Orientation Straight 11/04/2020 10 :09 PM CDT Obstetrics History Para Term AB IAB SAB Ectopic Multiple Livin g Live Births 2 2 2 2 2 Date Outcome GA Total Labor Labor/2nd/3rd Weight Sex Type Anes PTL Sindi A1 A5 Name Clin Term Term Last Filed Vital Signs Vital Sign Reading Time Taken Comments Blood Pressure 137/84 11/16/2022 3:28 PM CDT Pulse 81 11/16/2022 3:28 PM CDT Temperature 36.7 C (98.1 F) 11/16/2022 3:28 PM CDT Respiratory Rate 16 11/16/2022 3:28 PM CDT Oxygen Saturation 99% 11/16/2022 3:28 PM CDT Inhaled Oxygen Concentration - - Weight 80.2 kg (176 lb 11.2 oz) 11/16/2022 3:28 PM CDT Height 163.4 cm (5' 4.33 ) 11/16/2022 3:28 PM CD T Body Mass Index 30.02 11/16/2022 3:28 PM CDT Plan of Treatment Health Maintenance Due Date Last Done Comments Breast Cancer Screening-Mammogram 1960 Colon Cancer Screening-Colonoscopy 1960 Depression Screening 1960 Fall Risk Assessment 1960 Hepatitis C Screening 1960 Osteoporosis Screening-Bone Density Scan 1960 Hepatitis B Screening 1976 Pneumococcal vaccine 65+ (1 of 1 - PCV) 2008 Zoster Vaccine (1 of 2) 2008 Cervical Cancer Screening 11/05/2021 11/05/2020 Covid-19 Vaccine (2023-2 5 season) 2023 06/29/2021, 01/02/2021, 03/30/2020, Additional history exists Well Visit 65+ 11/26/2023 Influenza Vaccine (Season Ended) 2024 DTaP/Tdap/Td Vaccine (2 - Td or Tdap) 03/10/2028 03/10/2018 Procedures Procedure Name Priority Date/Time Associated Diagnosis Comments PAP AND HIGH RISK HPV, REFLEX TO GENOTYPING Routine 11/05/2020 12:00 AM CDT Vulvar lesion from Last 3 Months or Most Recently Relevant to Health Maintenance Results * Pap and High Risk HPV, reflex to Genotyping (11/05/2020 12:00 AM CDT) Swab (Pap test) 11/05/2020 5:39 PM CDT Narrative PATHOLOGY [facility] - 11/13/2020 9:36 AM CDT EPIC results best viewed via link to PDF [facility] [place] [address] Note to Patients: This report may contain a detailed description of human tissue sent by a health care provider to the laboratory for pathologic evaluation. The content of this report is essential for diagnosis and may provide important critical findings. This information may be unfamiliar to patients to review without a medical professional present. It is advised that the patient review this report in the presence of a health care provider who can answer questions and explain the details. CYTOPATHOLOGY REPORT FINAL Patient Name: SUYAPA RAWLS Gender: F : 1960 (Age: 59) Address: [facility] [address] [place] [address] [facility] #: [id number] Service: Laboratory [facility] Patient Type: [facility] Ref Lab Taken: 11/05/2020 Received: 11/06/2020 Accessioned: 11/06/2020 Reported: 11/13/2020 Physician(s): CHANTEL Santoro FINAL INTERPRETATION SOURCE OF SPECIMEN: Liquid based Thin Prep pap with HPV STATEMENT OF ADEQUACY: - Satisfactory for evaluation - No endocervical/transformation zone sample present in a post menopausal patient GENERAL CATEGORY: - Negative for squamous intraepithelial lesion or malignancy DESCRIPTION: - Atrophy Comments HPV Result: NEGATIVE for high risk types of Human Papilloma Virus (HPV) RNA This probe detects the presence of HPV types: 16, 18, 31, 33, 35, 39, 45, 51, 52, 56, 58, 59, 66 and 68. This HPV test was performed at [facility] in [place], [place] utilizing the Gen-Probe Aptima assay. [email or web address]/11/13/2020 09:36 ESTEFANY Shaffer (ASCP) Report Electronically Reviewed and Signed Out By ESTEFANY Shaffer (ASCP) 11/13/2020 09:36:26 Cervicovaginal Cytology (Pap Test) Disclaimer: The Pap test is a screening test used to detect cervical cancer and its precursors; it is not a diagnostic procedure. False negative and false positive results do occur. Pap test results should be interpreted in the context of pertinent clinical information and biopsy results as indicated. Gross Description A. Liquid based Thin Prep pap with HPV: Cervical/vaginal - Screening ThinPrep Clinical Diagnosis and History Last Menstrual Period: unknown The patient is a 59 year old woman with menopause, dark, benign [place] on vulva. The HPV test was performed by [facility], [address] [place] [address]. Report Images and scanned documents, if included only viewable in PDF version The performance characteristics of some immunohistochemical stains, in-situ hybridization and fluorescence in-situ hybridization tests and immunophenotyping by flow cytometry cited in this report (if any) were determined by the Surgical Pathology Department at [facility] as part of an ongoing quality management nurse program and in compliance with federally mandated regulations drawn from the Clinical Laboratory Improvement Act of 1988 (CLIA '88). Some of these tests rely on the use of analyte specific reagents and are subject to specific labeling requirements by the US Food and Drug Administration. Such diagnostic tests may only be performed in a facility that is certified by the Department of Health and Human Services as a high complexity laboratory under CLIA '88. The FDA has determined that such clearance or approval is not necessary. This test is used for clinical purposes. It should not be regarded as investigational or for research. Nevertheless, federal rules concerning the medical use of analyte specific reagents require that the following disclaimer be attached to the report: This test was developed and its performance characteristics determined by the Surgical Pathology Department of [facility]. It has not been cleared or approved by the U. S. Food and Drug Administration. Fransisca Lane COLLATOR HAND LAB CYTOLOGY ORDERABLES Final R esult PATHOLOGY [facility] 3rd Floor [place], [place] [phone] from Last 3 Months or Most Recently Relevant to Health Maintenance Insurance [facility] Care Teams Director Of Photography Relationship Specialty Start Date End Date Kenji Bateman MD [address] [place] [address] PCP - General Family Medicine 07/24/19
--- OUTSIDE RECORDS SUMMARY | 2024-07-26 07:36 | XMS_ITS | Continuity of Care Document ---
Author Organization [facility] Address [address] [place] [address] Phone Care Team Providers Care Business Controller Name Role Phone Xavier OD, Luis Eduardo Unavailable Unavailable Advance Directives Directive Yes / No Effective Date File Name No Information Encounters Encounter Description Practice Location Reason(s) For Visit Diagnoses Date Provider Providers Copied on Encounter [facility], [address], [place], [place], [id number], [place] tel:[phone] [facility] No Information Apr-2 6-200 1 Xavier OD Luis Eduardo. [address] , [address], [place], [address], [place]. tel:[phone] Family History Family Member Type Diagnosis Age At Onset No Information Payers Payer name Insurance type Covered democrat ID Authoriza tion(s) No Information Social History Type Description Quantity Date Captured Comments Sex Female Smoking Status No Information Chief Complaint And Reason For Visit No Information Reason For Referral Reason For Referral No Information History Of Present Illness Encounter Date Complaint History Of Prese nt Illness No Information Functional Status Date Functional Assessmen t No Information Instructions Date Instruction Additional Infor mation No Information Assessments Type Assessment Date No Information Patient Care Teams Name Effective Dates (start - stop) Status Members No Information
--- OUTSIDE RECORDS SUMMARY | 2024-07-26 07:36 | XMS_ITS | Referral Summary ---
Author Organization [facility] Address [facility] [place] [address] Care Team Providers Care English Faculty Member Name Role Phone Kenji Bateman MD Primary Care Provider [phone] Allergies Active Allergy Reactions Criticality Noted Date [...] Immunization Administration Dates Next Due Tdap 03/10/2018 Social History Tobacco Use Types Packs/Day Years [...] Orientation Straight 11/04/2020 10 :09 PM CDT Last Filed Vital Signs Vital Sign Reading [...] 11/16/2022 3:28 PM CDT Plan of Treatment Not on file Procedures Procedure Name Priority Date/Time Associated Diagnosis Comments PAP AND HIGH RISK HPV, REFLEX TO GENOTYPING Routine 11/05/2020 12:00 AM CDT Vulvar lesion from Last 3 Months or Most Recently Relevant to Health Maintenance Results * Pap and High Risk HPV, reflex to Genotyping (11/05/2020 12:00 AM CDT) Swab (Pap test) 11/05/2020 5:39 PM CDT Narrative PATHOLOGY [facility] - 11/13/2020 9:36 AM CDT EPIC results best viewed via link to PDF [facility] Surgical Pathology [place], [place] [phone] Note to Patients: This report may contain [...] Gender: F : 1960 (Age: 59) Address: [facility] [address], [place] [id number] Hospital #: [id number] Service: Laboratory Location: [facility] Patient Type: [facility] Ref Lab Taken: 11/05/2020 Received: 11/06/2020 Accessioned: [...] 68. This HPV test was performed at [facility] in [place], [place] utilizing the Gen-Probe Aptima assay. blanca11/13/2020 09:36 ESTEFANY Shaffer (ASCP) Report Electronically Reviewed [...] year old woman with menopause, dark, benign [place] on vulva. The HPV test was performed by [facility], [address] [place] [address]. Report Images and scanned documents, if included only viewable in PDF version The performance characteristics of some immunohistochemical stains, in-situ hybridization and fluorescence in-situ hybridization tests and immunophenotyping by flow cytometry cited in this report (if any) were determined by the Surgical Pathology Department at [facility] as part of an ongoing quality assurance supervisor program and in compliance with federally mandated [...] determined by the Surgical Pathology Department of [facility]. It has not been cleared or approved by the U. S. Food and Drug Administration. Fransisca Lane NP LAB CYTOLOGY ORDERABLES Final R esult PATHOLOGY [facility] 3rd Floor [place], [place] [phone] from Last 3 Months or Most Recently Relevant to Health Maintenance Insurance [facility] Care Teams English Faculty Member Relationship Specialty Start Date End Date Kenji Bateman MD [address] [place] [address] PCP - General Family Medicine 07/24/19
== END 2024-07-26 07:34 | disposition home or self-care (01) ==
PROVIDERS: PCP Family Medicine; Visit Provider Family Medicine
DX: Z12.31 Encounter for screening mammogram for malignant neoplasm of breast (principal)
CPT/HCPCS: 77063; 77067

== ENCOUNTER 2024-10-25 12:30 | Outpatient (RCR) | payer MEDICARE, SELFPAY ==
--- NOTE | 2024-09-28 14:06 | OPREHPOC ---
Outpatient Therapy Plan of Care This is a Multidisciplinary Plan of Care that may contain components documented by all disciplines (PT, OT, and ST.) PT Problem 1 PT Problem #1 Knowledge Deficit PT Goal 1 Goal / Goal Update 1. Patient to demonstrate independence with HEP for improved self-reliance of symptom management. Target Visit 6 PT Problem 2 PT Problem #2 Impaired Strength PT Goal 1 Goal / Goal Update 1. Patient to demonstrate L posterior tibial strength >=5/5 for improved functional stability 2. Pt will display ability to perform single leg calf raise on L through full ROM 3. Patient will demonstrate improved strength of the bilateral hip abductors and extensors to 4+/5 on manual muscle testing in order to improve gait stability and stair negotiation. Target Visit 6 PT Problem 3 PT Problem #3 Impaired Functional Mobility PT Goal 1 Goal / Goal Update 1. Pt report ability to walk 2-3 miles a day without increasing symptoms in tibialis posterior tendon Target Visit 6
--- NOTE | 2024-09-28 14:07 | PTOPEVAL1 ---
Assessment and note entered by Howard Gallegos PT Evaluation Information Assessment Status Evaluation Diagnosis L foot / ankle pain ICD-10 Condition Codes (PT) Pain in right ankle and joints of right foot M25. 571,Pain in left ankle and joints of left foot M25 .572 Onset 2 years ago Subjective Information Pt reports a history of foot and ankle after an ankle sprain about 2 years ago . Pt has difficulties with prolonged walking, going up and down stairs. Pt report she has tried ice and recently change her tennis shoes and has noticed good improvements. Pt enjoys to walk and wants to walk as exercise more frequently without pain. Reported Pain Level Pain Score 3: Self Report Assessment PT Clinical Summary Patient presents to physical therapy with a primary issue of L ankle / foot pain since 2 years ago after she sprain her L ankle. Patient displays signs and symptoms consistent with tibialis posterior tendinopathy such as tenderness to palpation, painful tibialis posterior activation and stretch. Patient demonstrates L ankle and ISAK hip weakness, abnormal posture (pes planus), gait deficit, that limit their ability to perform activities of daily living and functional movements. Patient will benefit from skilled physical therapy to address the above listed deficits and return to prior level of function. Home exercise program instructed and written handout provided, exercises tolerated well with no adverse effects to note post-session. Patient was educated on importance of adherence to home exercise program. Patient was also educated on anatomy, prognosis, home modalities, and plan of care. Plan of Care Interventions Gait Training,Hot Pack/Cold Pack,Manual Therapy, Neuro Re-education,Therapeutic Activities, Therapeutic Exercise,Ultrasound,Other PT Services Indicated Yes Treatment Frequency and 1x week 6 visits Duration These treatments will address the objective and functional deficits as defined above. The patient will be advanced safely and appropriately in order for the patient to progress towards his/her prior level of function. Additional exercises will be introduced and as well as a comprehensive home exercise program upon discharge, if needed, ?to ensure carryover of functional gains achieved in the clinic. This treatment plan has been reviewed and agreement upon by the patient.
--- NOTE | 2024-10-25 13:15 | PTOPDC ---
Assessment and note entered by Howard Gallegos, PT Evaluation Information Assessment Status Evaluation Diagnosis L foot / ankle pain ICD-10 Condition Codes (PT) Pain in right ankle and joints of right foot M25. 571,Pain in left ankle and joints of left foot M25 .572 Onset 2 years ago Subjective Information Pt states she feels 95% better. She has returned to her walking program and has no further concerns at this time. Reported Pain Level Pain Score 0: Self Report Assessment PT Clinical Summary Patient's foot and ankle pain has improved overall as evidenced by advancements in symptoms, mobility, strength, and overall functional use of the extremity. Patient has met therapy goals and is pleased with progress made. Patient to discharge from physical therapy this date and continue with updated home exercise program as instructed. Patient to contact physical therapist or primary care provider if questions or concerns arise. Plan of Care PT Services Indicated No
== END 2024-10-25 14:16 | disposition home or self-care (01) ==
LOC: ANHGOSHPT 12:30
PROVIDERS: PCP Family Medicine; Visit Provider Family Medicine
DX: M21.6X1 Other acquired deformities of right foot (principal); M21.6X2 Other acquired deformities of left foot; M77.50 Other enthesopathy of unspecified foot and ankle
CPT/HCPCS: 97110; 97112; 97140; 97161; 97530